=== PATIENT | male | born 1940 | race Caucasian/White ===

== ENCOUNTER 2018-12-20 13:27 | Observation (INO) | payer OTHER, MEDICARE ==
[~2018-12-20] VITALS: Ht 177.8 cm; Wt 56.7 kg
[~2018-12-20 13:27] MED LIST: EPIN.3I IM
[2018-12-20 15:42] LABS: BASOPHILS ABSOLUTE AUTO 0.04 K/mm3 (0.00-0.23); BASOPHILS PERCENT AUTO 0 % (0-2); EOSINOPHILS ABSOLUTE AUTO 0.04 K/mm3 (0.00-0.68); EOSINOPHILS PERCENT AUTO 0 % (0-6); Hematocrit 44.4 % (37.0-53.0); Hemoglobin 14.5 g/dL (13.5-17.5); IMMATURE GRAN ABSOLUTE AUTO 0.13 K/mm3 (0.00-0.10); IMMATURE GRAN PERCENT AUTO 1 % (0-1); LYMPHOCYTES ABSOLUTE AUTO 0.77 K/mm3 (0.84-5.20); LYMPHOCYTES PERCENT AUTO 6 % (21-46); MONOCYTES ABSOLUTE AUTO 0.91 K/mm3 (0.16-1.47); MONOCYTES PERCENT AUTO 7 % (4-13); Mean Corpuscular HGB 30.9 pg (26.0-34.0); Mean Corpuscular HGB Conc 32.7 g/dL (31.5-36.5); Mean Corpuscular Volume 95 fL (80-100); Mean Platelet Volume 10.3 fL (9.1-12.4); NEUTROPHILS ABSOLUTE AUTO 12.02 K/mm3 (1.96-9.15); NEUTROPHILS PERCENT AUTO 87 % (41-73); Platelet Count 158 K/mm3 (150-400); RDW Coefficient Variation 14.4 % (11.7-14.2); White Blood Cell Count 13.91 K/mm3 (4.00-11.30)
[2018-12-20] MEDS ORDERED: ALLO300 PO (15:44)
[2018-12-20] MEDS ORDERED: LEVSOD112 PO (15:44)
[2018-12-20 15:55] LABS: Source, Urine Clean Catch
[2018-12-20 16:00] LABS: Bilirubin, Urine Neg (Neg); Blood, Urine Neg (Neg); Glucose Qualitative, Urine Neg (Neg); Ketones, Urine Neg (Neg); Leukocyte Esterase, Urine Neg (Neg); Nitrite, Urine Neg (Neg); Protein, Urine 1+ (Neg); Specific Gravity, Urine 1.025 (1.003-1.022); Urobilinogen, Urine NORM (Normal)
[2018-12-20 16:02] LABS: International Normalized Ratio 0.98; Prothrombin Time Results 10.4 Sec (9.7-11.5)
[2018-12-20 16:07] LABS: Alanine Aminotransfer (ALT/SGP 26 U/L (12-78); Albumin/Globulin Ratio 1.3 (0.8-1.8); Alk Phos 83 U/L (50-136); Anion Gap 7 mmol/L (6-16); Aspartate Aminotrans (AST/SGOT 26 U/L (12-37); Bilirubin, Total 0.6 mg/dL (0.1-1.0); Blood Urea Nitrogen 26 mg/dL (8-24); Bun/Creatinine Ratio 21.1 (12.0-20.0); CO2, Blood 27 mmol/L (21-32); Calcium, Blood 9.7 mg/dL (8.5-10.1); Chloride, Blood 103 mmol/L (98-108); Creatinine, Blood 1.23 mg/dL (0.60-1.20); Glomerular Filtration Rate >60 (60-); Glucose, Blood 133 mg/dL (70-99); Potassium, Blood 4.4 mmol/L (3.5-5.5); Sodium, Blood 137 mmol/L (136-145)
[2018-12-20 16:10] LABS: Appearance, Urine Clear (Clear); Color, Urine Yellow (P-Yellow)
[2018-12-20] MEDS ORDERED: Norco 5-325 Ta1 EACH PO (17:13)
[2018-12-20] MEDS ORDERED: LO-DOSE ASPIRIN81 MG PO (19:33)
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
--- NOTE | 2018-12-21 18:43 | NUR ---
SUMMARY PATIENT REMAIINS SITTING IN CHAIR SLEEPING AFTER RECENT DOSE OF NORCO AND DILAUDID. PATIENTS AT BEDSIDE THROUGHOUT SHIFT. SLIGHT INCREASE IN BRUISING NOTED TO LEFT MANDAEN. LEFT FLANK HEMATOMA DOES NOT APPEAR TO HAVE INCREASED IN SIZE FROM AM ASSESSMENT.
--- NOTE | 2018-12-22 06:43 | NUR ---
SHIFT SUMMARY LYING IN HIGH FOWLERS WITH EYES CLOSED. ABLE TO TAKE AM MEDS WITH EASE. GIVEN SECOND DOSE OF TORADOL WITHOUT ISSUES. NO FURTHER CHANGES SINCE START OF SHIFT. SAFETY MEASURES IN PLACE. WILL CONTINUE TO MONITOR.
--- NOTE | 2018-12-22 10:45 | NUR ---
WOUNDS TO R THUMB, RLE, AND L SHOULDER, ELBOW, AND FLANK CLEANSED, DRIED, AND NON ADHERENT DRESSINGS APPLIED. NO S/SX INFECTION NOTED. PATIENT TOLERATED WELL.
--- NOTE | 2018-12-22 17:37 | NUR ---
SHIFT SUMMARY PATIENT STATES PAIN MUCH IMPROVED OVER YESTERDAY, CONTROLLED WITH PO PAIN MED AND TORADOL. UP IN ROOM WITH PT. UP TO CHAIR W/ VERY MINIMAL ASSIST FOR DINNER. TOLERATING PO. VOIDING W/O DIFFICULTY. DRESSINGS REMAIN C,D,I. FAMILY AT BEDSIDE. NO C/O AT THIS TIME.
--- NOTE | 2018-12-23 05:32 | NUR ---
SHIFT SUMMARY LYING IN SEMI FOWLERS WITH EYES CLOSED. PAIN HAS BEEN WELL MANAGED THIS SHIFT. NO FURTHER CHANGES SINCE START OF SHIFT. SAFETY MEASURES IN PLACE. WILL CONTINUE TO MONITOR.
[2018-12-23] MEDS ORDERED: Norco 5-325 Ta1 EACH PO (16:06)
--- NOTE | 2018-12-23 16:42 | NUR ---
PATIENT D/C'D HOME W/ SO AND DAUGHTER AT THIS TIME. PATIENT STATES UNDERSTANDING OF MEDS, ACTIVITY, F/U APPT, WOUND CARE, ETC. PATIENT STATES PAIN WELL CONTROLLED WITH PO MEDS. TOLERATING DIET. ABLE TO TRANSFER BY SELF W/ JAY WALKER. VOIDING WELL. NO C/O AT THIS TIME.
== END 2018-12-23 16:45 | disposition home or self-care (01) ==
LOC: ER 13:27 → SURS 13:28 → ER 19:48 → SURS 21:27
PROVIDERS: Physician Assistant; ADMIT Surgery
DX: S42.032A Displaced fracture of lateral end of left clavicle, initial encounter for closed fracture (principal); S32.592A Other specified fracture of left pubis, initial encounter for closed fracture; S42.142A Displaced fracture of glenoid cavity of scapula, left shoulder, initial encounter for closed fracture; S32.10XA Unspecified fracture of sacrum, initial encounter for closed fracture; S30.1XXA Contusion of abdominal wall, initial encounter; M16.12 Unilateral primary osteoarthritis, left hip; Z79.899 Other long term (current) drug therapy; Z79.82 Long term (current) use of aspirin; V23.4XXA Motorcycle driver injured in collision with car, pick-up truck or van in traffic accident, initial encounter
CPT/HCPCS: 36415; 70450; 71260; 72125; 73030; 73200; 73502; 74177; 76377; 80053; 85025; 85610; 96360-59; 96361-59; 96372; 96374; 96375; 96376; 97110; 97116; 97162; 97166; 97530; 97535; 99285-25; A9270-GY; G0378; J1170; J1650; J1885; J7030; Q9967

== ENCOUNTER → 2019-05-10 | Outpatient (CLI) | payer MEDICARE, OTHER ==
[~2019-05-10] MED LIST changes: +ALLO300 PO; +LEVSOD112 PO; +LO-DOSE ASPIRIN81 MG PO; +Norco 5-325 Ta1 EACH PO
== END | disposition home or self-care (01) ==
LOC: PLD 12:05 → LAB SHORT 12:05
DX: D48.5 Neoplasm of uncertain behavior of skin (principal)
CPT/HCPCS: 88305

== ENCOUNTER 2020-08-15 06:09 | Day surgery (SDC) | payer MEDICARE, OTHER ==
[~2020-08-15] VITALS: Ht 172.7 cm; Wt 68.0 kg
[~2020-08-15 06:09] MED LIST changes: +ASPIR 8181 M1 PO; -LO-DOSE ASPIRIN81 MG PO
--- NOTE | 2020-08-15 10:31 | NUR ---
ALL AIR RELEASED FROM TR BAND AND PT DRESSED PER SELF. ASSIST NEEDED FOR SOCKS AND SHOES. R RADIAL SITE CLEANSED AND CLOTH DOT IN PLACE, NO BLEEDING OR HEMATOMA NOTED. DISCHARGE INSTRUCTIONS REVIEWED WITH PT, PT VERBALIZES UNDERSTANDING OF INSTRUCTIONS. PT TO PRIVATE VEHICLE PER W/C WITH DISCHARGE VOLUNTEER.
== END 2020-08-15 11:00 | disposition home or self-care (01) ==
LOC: MHTC 06:09
DX: I35.0 Nonrheumatic aortic (valve) stenosis (principal); I25.10 Atherosclerotic heart disease of native coronary artery without angina pectoris; I10 Essential (primary) hypertension; E03.9 Hypothyroidism, unspecified; M10.9 Gout, unspecified; Z86.718 Personal history of other venous thrombosis and embolism
CPT/HCPCS: 76937; 93454; 99152; C1769; C1894; J1644; J2250; J3010; J7030; J7050; Q9967

== ENCOUNTER → 2020-09-16 | Outpatient (CLI) | payer MEDICARE, OTHER | LOC: LAB SHORT 11:40 → LAB 11:40 | DX: D48.5 Neoplasm of uncertain behavior of skin (principal) | CPT/HCPCS: 88305 ==

== ENCOUNTER → 2021-03-11 | Outpatient (CLI) | payer MEDICARE, OTHER | LOC: LAB SHORT 10:59 → LAB 10:59 | DX: D48.5 Neoplasm of uncertain behavior of skin (principal) | CPT/HCPCS: 88305 ==

== ENCOUNTER 2024-11-06 08:26 | Day surgery (SDC) | payer MEDICARE, OTHER ==
[~2024-11-06] VITALS: Ht 170.2 cm; Wt 69.9 kg
[~2024-11-06 08:26] MED LIST changes: +NS 500 ML IV ONE
[2024-11-06] MEDS ORDERED: CeFAZolin Sodium 2,000 MG VIAL ONE (09:03)
[2024-11-06] MEDS ORDERED: NS 1,000 ML IV ONE ×2 (09:21→09:27)
--- NOTE | 2024-11-06 09:28 | NUR ---
11/06/24 0928 RACHEL WEISS CALL LIGHT IN REACH. GURNEY RAILS UP. BRAKES LOCKED. PT STATES NO NEEDS AT THIS TIME.
[2024-11-06] MEDS ORDERED: propofoL 20 ML IV ONE (09:58)
[2024-11-06] MEDS ORDERED: Midazolam HCl 1MG / ML 2ML Vial ONE (09:58)
[2024-11-06] MEDS ORDERED: Ketorolac Tromethamine 30mg Vial ONE (10:01)
[2024-11-06 10:45] VITALS: BP 112/71
== END 2024-11-06 10:42 | disposition home or self-care (01) ==
LOC: ORSCSDS 08:26
PROVIDERS: Orthopaedic Surgery
PROC: 0LN80ZZ Release Left Hand Tendon, Open Approach (ICD-10-PCS; principal; 2024-11-06 10:00)
DX: M65.342 Trigger finger, left ring finger (principal); Z79.82 Long term (current) use of aspirin; Z79.899 Other long term (current) drug therapy
CPT/HCPCS: J0690; J1885; J2250; J2704; J7040